=== PATIENT | male | born 1995 | race Caucasian/White ===

== ENCOUNTER 2020-05-25 11:41 | Emergency (ER) | payer OTHER, SELFPAY ==
--- NOTE | ~2020-05-25 | CT_ITS ---
EXAMINATION: CT soft tissue neck w con DATE: 05/25/2020 13:28 INDICATION: Peritonsillar abscess TECHNIQUE: Computed tomography (CT) of the neck was performed with 75 mL Omnipaque-350 intravenous co ntrast. Automated exposure control and iterative reconstruction technique were employed. The dose-dwayne gth product was 714.49 mGy-cm. COMPARISON: None FINDINGS: There is soft tissue swelling at the bilateral palatine tonsils. There are hypodense regions with per ipheral enhancement at both palatine tonsils largest region on the left measuring 1.5 x 1.4 cm the la rgest region on the right measuring 1.3 x 0.7 cm which could represent regions of either phlegmonous change or early abscess formation. Epiglottis and aryepiglottic folds are normal. No narrowing of the pharyngeal, hypopharyngeal or tracheal airway. Bilateral parotid glands, submandibular glands and th e thyroid gland are unremarkable. Likely reactive bilateral cervical lymphadenopathy most prominent a t the high jugular chain lymph nodes which measure up to 1.5 cm in maximal short axis diameter on bot h the left and right. Visualized apices of the lungs are clear. Cervical vasculature is unremarkable. The orbits and visualized portions of the brain are normal. Paranasal sinuses, mastoid air cells and middle ear cavities are clear. Likely positional reversal of the normal cervical lordosis. Large den axel caries with periapical lucency at the right maxillary first molar, left mandibular first molar an d right mandibular second molar. IMPRESSION: 1. Small region of phlegmonous change/early abscess formation at the bilateral palatine tonsils. 2. Dental disease. Reviewed, dictated and finalized at location A.
[2020-05-25 12:01] VITALS: BP 141/89; PULSE 109; RESP 16; TEMP 37.4; O2SAT 99
[2020-05-25 12:20] VITALS: BP 126/84; PULSE 102; RESP 18; TEMP 37; O2SAT 100
--- NOTE | 2020-05-25 12:30 | ED.GENADULT ---
HPI - General Adult General Chief complaint: Unspecified Stated complaint: swollen tonsils/muffled voice Time Seen by Provider: 05/25/20 12:18 Source: patient Mode of arrival: ambulatory Limitations: no limitations History of Present Illness HPI narrative: This is a 24 year old male that presents to the ER for sore throat x 5 days. Also reports fever, congestion and cough. Reports he was seen by his primary for this and started on azithromycin without relief. Reports worsening swelling in the throat which is making it difficult for him to swallow. Denies shortness of breath. Related Data Allergies Allergy/AdvReac Type Severity Reaction Status Date / Time No Known Allergies Allergy Mild Verified 05/25/20 10:50 Review of Systems Review of Systems: Narrative: CONSTITUTIONAL: Reports fever ENT: Reports rhinorrhea, congestion, sore throat RESPIRATORY: Reports cough. Denies dyspnea. All systems reviewed & are unremarkable except as noted in HPI and below PMFSH Social History Social History (Reviewed 05/25/20 @ 10:50 by Tsering Mcfarland, [facility]) Smoking status: Never smoker Second hand tobacco smoke exposure: No Alcohol intake: current Gender identity (if verbalized by the patient): Male Exam Narrative: Exam Narrative: GENERAL: Well-appearing, well-nourished, and in no acute distress. HEAD: Normocephalic, atraumatic. EYES: EOMI. ENT: Nares clear, no rhinorrhea or epistaxis. Mucous membranes moist. Oropharynx with moderate-severe symmetric tonsillar hypertrophy and exudate, no other lesions. Bilateral TMs pearly brown non-bulging NECK: Supple. Tender anterior cervical adenopathy. No masses. CHEST: Clear to auscultation. No respiratory distress. No wheezes rales or rhonchi HEART: Regular rate and rhythm. No murmur heard. Normal peripheral pulses. EXTREMITIES: Normal range of motion. No edema. SKIN: Warm, dry, no rash. NEURO: No focal deficits. Alert and oriented x3. PSYCH: Normal mood and affect Course Consultations Consultation #1: Spoke with Dr. Pineda about patient and workup. Patient will be given dose of steroid and first dose of antibiotics IV in the ED. Will be started on Augmentin. Patient is to follow up in clinic on Monday if he is still not feeling any better. Date: 05/25/20 Time: 14:35 Vital Signs Vital signs: Vital Signs Temperature 99.3 F 05/25/20 12:01 Pulse Rate 109 H 05/25/20 12:01 Respiratory Rate 16 05/25/20 12:01 Blood Pressure 141/89 H 05/25/20 12:01 Pulse Oximetry 99 05/25/20 12:01 Temperature 98.6 F 05/25/20 12:20 Pulse Rate 102 H 05/25/20 12:20 Respiratory Rate 18 05/25/20 12:20 Blood Pressure 126/84 05/25/20 12:20 Pulse Oximetry 100 05/25/20 12:20 Medical Decision Making MDM Narrative Medical decision making narrative: Patient presents to the ER for bilateral tonsillar hypertrophy and erythema. Was placed on a z pac with little relief. He is afebrile and nontoxic appearing. Tonsillar hypertrophy is bilateral and symmetric. Patient is able to swallow. Airway is patent. CBC is with leukocytosis to 19.6. Patient's rapid strep and monoscreen were negative. CT scan of the soft tissue neck shows small region of phlegmonous change at the bilateral palatine tonsils. Spoke with Dr. Pineda about patient and workup. Patient will be given dose of steroid and first dose of antibiotics IV in the ED. Will be started on Augmentin. Patient is to follow up in clinic on Monday if he is still not feeling any better. He was given warnings to return to the ER Vital Signs Vital Signs: Vital Signs Temperature 99.3 F 05/25/20 12:01 Pulse Rate 109 H 05/25/20 12:01 Respiratory Rate 16 05/25/20 12:01 Blood Pressure 141/89 H 05/25/20 12:01 Pulse Oximetry 99 05/25/20 12:01 Temperature 98.6 F 05/25/20 12:20 Pulse Rate 102 H 05/25/20 12:20 Respiratory Rate 18 05/25/20 12:20 Blood Pressure 126/84 05/25/20 12:20 Pulse Oximetry 100 05/25/20 12:
[2020-05-25 12:32] LABS: Basophils Absolute Auto 0.1 K/mm3 (0.0-0.1); Basophils Percent Auto 0.5 % (0.2-1.2); Eosinophils Absolute Auto 0.1 K/mm3 (0-0.3); Eosinophils Percent Auto 0.5 % (0-4.4); Hematocrit 47.7 % (42.0-52.0); Hemoglobin 16.7 g/dL (14.0-18.0); Immature Granulocyte Absolute 0.16 K/mm3 (0.00-0.031); Immature Granulocyte Percent A 0.8 % (0-0.5); Lymphocytes Percent Auto 9.7 % (18.3-44.2); Mean Corpuscular Hemoglobin 31.8 pg (26-34); Mean Corpuscular Volume 90.9 fl (80-100); Mean Platelet Volume 10.4 fl (7.4-10.4); Monocytes Absolute Auto 2.3 K/mm3 (0.1-0.6); Monocytes Percent Auto 11.8 % (2.6-8.5); Neutrophils Percent Auto 76.7 % (45.5-73.1); Platelet Count Result 252 k/mm3 (150-375); Red Blood Count 5.25 M/mm3 (4.6-6.20); Red Cell Distribution Width 11.7 % (11.5-14.5); White Blood Count 19.6 K/mm3 (4.5-10.0)
[2020-05-25 12:48] LABS: Anion Gap 12 mmol/L (8-16); Blood Urea Nitrogen 13 mg/dL (9-20); Calcium 9.8 mg/dL (8.4-10.2); Carbon Dioxide 31 mmol/L (22-30); Chloride 96 mmol/L (98-107); Estimated CRCL calculation 184 ml/min; Estimated Glomerular Filt Rate > 60; Glucose 119 mg/dL (75-110); Potassium 4.4 mmol/L (3.4-5.0); Sodium 139 mmol/L (137-145)
[2020-05-25 13:44] LABS: Monoscreen Negative (Negative); Negative Monotest Control Negative (Negative); Positive Monotest Control Positive (Positive)
[2020-05-25] MEDS: SODIUM CHLORIDE 0.9% IV 1,000 ML 999 ML IV CONT (14:22)
[2020-05-25] MEDS: AMPICILLIN SULB 3 GM/NS 100 ML 3 GM/100 ML VIAL IVPB (14:22)
[2020-05-25 15:18] VITALS: BP 128/70; PULSE 74; RESP 18; TEMP 36.6; O2SAT 97
== END 2020-05-25 15:21 | disposition home or self-care (01) ==
PROVIDERS: Physician Assistant; Emergency Provider Emergency Medicine; PCP Family Medicine
DX: J36 Peritonsillar abscess (principal); K02.9 Dental caries, unspecified
CPT/HCPCS: 36415; 70491; 80048; 85025; 86308; 87081; 87880; 96365; 96375; 99284; J0295; J1100; J7030; Q9967